=== PATIENT | male | born 1970 ===

== ENCOUNTER 2022-03-16 06:00 | Day surgery (SDC) | payer OTHER ==
[~2022-03-16] VITALS: Ht 181.6 cm; Wt 80.7 kg
[~2022-03-16 06:00] MED LIST: TAMS0.4C PO
[2022-03-16] MEDS ORDERED: SURFAK240 M1 PO (08:46)
[2022-03-16] MEDS ORDERED: ULTRACET PO (08:46)
[2022-03-16] MEDS ORDERED: PROTONIX40 MG PO (08:46)
[2022-03-16] MEDS ORDERED: CEFADROXIL500 MG PO (08:46)
== END 2022-03-16 11:00 | disposition home or self-care (01) ==
LOC: CIR.AMB 06:00
PROVIDERS: ATTEND Surgery
DX: K42.9 Umbilical hernia without obstruction or gangrene (principal); Z20.822 Contact with and (suspected) exposure to COVID-19; Z88.8 Allergy status to other drugs, medicaments and biological substances